=== PATIENT | male | born 1985 | race Caucasian/White ===

== ENCOUNTER 2016-07-11 10:36 | Emergency (ER) | payer BC ==
[2016-07-11 10:58] VITALS: TEMP 99.1
[2016-07-11] MEDS ORDERED: KETOROLAC 30 MG/ML 1 ML VIAL IVP STA (11:17)
[2016-07-11] MEDS ORDERED: DEXAMETHASONE SOD PHOSPHATE 10 MG/ML 1 ML VIAL PO ONE (11:20)
--- NOTE | 2016-07-11 11:23 | ED ---
Headache HPI - General Chief Complaint: Headache Stated Complaint: headache Time Seen by Provider: 07/11/16 11:04 Mode of arrival: ambulatory Limitations: no limitations - History of Present Illness Initial Comments: Complaining about a headache for the last few days my calls it the worse headache of his life also complaining about the sinus pressures remained 1 yellow-green stuff from his nostrils he also had a mild fever and is also complaining about cough and spitting up some phlegm, he was seen in urgent care for his cough he was told he had a viral syndrome. He has a mild fever today is 99.1 he denies any neck stiffness or headache is new as a no history of chronic headaches or migraines in the past denies any pressure headaches to headaches and he denies any trauma to the head. Head injury years ago but nothing and now recent days. Review of system is unremarkable - Related Data Home Medications Medication Instructions Recorded Confirmed Acetaminophen-Codeine 300-30mg 1 tab PO Q8H PRN 07/11/16 07/11/16 [Tylenol #3] Previous Rx's Medication Instructions Recorded Amoxicillin/Potassium Clav 1 tab PO Q12HR #20 tab 07/11/16 [Augmentin 875-125 Tablet] Allergies Allergy/AdvReac Type Severity Reaction Status Date / Time No Known Allergies Allergy Verified 07/11/16 12:46 Review of Systems ROS Statement: Those systems with pertinent positive or pertinent negative responses have been documented in the HPI. ROS Other: All systems not noted in ROS Statement are negative. Past Medical History Past Medical History: No Reported History History of Any Multi-Drug Resistant Organisms: None Reported Additional Past Surgical History / Comment(s): compartment syndrome sx left forearm Past Psychological History: No Psychological Hx Reported Smoking Status: Former smoker Past Alcohol Use History: None Reported Past Drug Use History: None Reported General Exam - General Exam Comments Initial Comments: General: The patient is awake and alert, in no distress, and does not appear acutely ill. Skin: Skin is warm and dry and no rashes or lesions are noted. Eye: Pupils are equal, round and reactive to light, extra-ocular movements are intact; there is normal conjunctiva bilaterally. Ears, nose, mouth and throat: Sinus consistent with sinusitis Neck: The neck is supple, there is no tenderness , he is able to move his neck or restriction, no signs of any meningitis at this time Cardiovascular: There is a regular rate and rhythm. No murmur, rub or gallop is appreciated. Respiratory: To auscultation bilateral, no wheezing no rhonchi no distress respiratory conte noticed Gastrointestinal: Soft, non-distended, non-tender abdomen without masses or organomegaly noted. There is no rebound or guarding present. Bowel sounds are unremarkable. Back: There is no tenderness to palpation in the midline. There is no obvious deformity. Musculoskeletal: Normal ROM, no tenderness, There is no pedal edema. There is no calf tenderness or swelling. No cords were appreciated. Neurological: CN II-XII intact, Cranial nerves III through XII are intact. There are no obvious motor or sensory deficits. Coordination appears grossly intact. Speech is normal. Psychiatric: Cooperative, appropriate mood & affect, normal judgment. Limitations: no limitations Course Vital Signs 07/11/16 10:55 Temperature 99.1 F Pulse Rate 83 Respiratory 18 Rate Blood Pressure 125/80 O2 Sat by Pulse 99 Oximetry His labs were discussed with the patient especially the C-reactive protein was elevated I advised the patient about the lumbar puncture that he wants to hold off the the lumbar puncture now him a he does want the instructions about lumbar puncture and meningitis and will come back if his symptoms get worse. He stated he had a scare about meningitis when he went to [place] for years ago is still wants to hold off the LP Medical Decision Making - Lab Data Result diagrams: 07/11/16 11:30 07/11/16 11:30 Lab Results 07/11/16 07/11/16 Range/Units 11:30 11:30 WBC 7.2 (3.8-10.6) k/uL RBC 5.21 (4.30-5.90) m/uL Hgb 15.4 (13.0-17.5) gm/dL Hct 42.2 (39.0-53.0) % MCV 80.9 (80.0-100.0) fL MCH 29.6 (25.0-35.0) pg MCHC 36.6 (31.0-37.0) g/dL RDW 12.2 (11.5-15.5) % Plt Count 221 (150-450) k/uL Neutrophils % 60 % Lymphocytes % 22 % Monocytes % 13 % Eosinophils % 1 % Basophils % 1 % Neutrophils # 4.3 (1.3-7.7) k/uL Lymphocytes # 1.6 (1.0-4.8) k/uL Monocytes # 1.0 (0-1.0) k/uL Eosinophils # 0.1 (0-0.7) k/uL Basophils # 0.0 (0-0.2) k/uL Hyperchromasia Slight Sodium 140 (137-145) mmol/L Potassium 3.9 (3.5-5.1) mmol/L Chloride 100 (98-107) mmol/L Carbon Dioxide 30 (22-30) mmol/L Anion Gap 10 mmol/L BUN 10 (9-20) mg/dL Creatinine 0.90 (0.66-1.25) mg/dL Est GFR (MDRD) Af Amer >60 (>60 ml/min/1.73 sqM) Est GFR (MDRD) Non-Af >60 (>60 ml/min/1.73 sqM) Glucose 84 (74-99) mg/dL Calcium 9.1 (8.4-10.2) mg/dL Total Bilirubin 1.2 (0.2-1.3) mg/dL AST 22 (17-59) U/L ALT 26 (21-72) U/L Alkaline Phosphatase 38 (38-126) U/L C-Reactive Protein 42.2 H (<10.0) mg/L Total Protein 7.1 (6.3-8.2) g/dL Albumin 4.5 (3.5-5.0) g/dL Disposition Clinical Impression: Headache, Sinusitis Disposition: HOME SELF-CARE Condition: Good Instructions: Bacterial Meningitis (ED) Prescriptions: Amoxicillin/Potassium Clav [Augmentin 875-125 Tablet] 1 tab PO Q12HR #20 tab Referrals: Nonstaff,Physician [REFERRING] - 1-2 days
[2016-07-11 11:45] LABS: Basophils % (A) 1 %; CH 30.4; CHCM 37.7; Eosinophils # (A) 0.1 k/uL (0-0.7); Eosinophils % (A) 1 %; HCT 42.2 % (39.0-53.0); HDW 2.84; HGB 15.4 gm/dL (13.0-17.5); Hyperchromasia Slight; Luc # (Auto) 0.26; Luc % (Auto) 4; Lymphocytes # (A) 1.6 k/uL (1.0-4.8); Lymphocytes % (A) 22 %; MCH 29.6 pg (25.0-35.0); MCHC 36.6 g/dL (31.0-37.0); MCV 80.9 fL (80.0-100.0); Monocytes % (A) 13 %; Neutrophils # (A) 4.3 k/uL (1.3-7.7); Neutrophils % (A) 60 %; RBC 5.21 m/uL (4.30-5.90); RDW 12.2 % (11.5-15.5); WBC 7.2 k/uL (3.8-10.6); WBC (Perox) 6.61
--- NOTE | 2016-07-11 11:55 | CT ---
EXAMINATION TYPE: CT brain wo con DATE OF EXAM: 07/11/2016 11:49 AM COMPARISON: NONE HISTORY: 30-year-old male with severe LAW TECHNIQUE: Examination was done in axial plane without intravenous contrast. Coronal and sagittal r econstructions performed. CT DLP: 1097.2 mGycm Automated exposure control for dose reduction was used. FINDINGS: There is no evidence of acute intracranial hemorrhage, acute ischemic changes, mass, mass-effect, or extra-axial fluid collection. There is no effacement of cerebral sulci or basal subarachnoid cister ns. There is no hydrocephalus. There is no midline shift. Manriquez-white matter distinction is preserv ed. Moderate mucosal thickening within the visualized right maxillary sinus. Mild within the ethmoid air cells, right sphenoid sinus, right frontal sinus, and left maxillary sinus. Mastoid air cells well pn eumatized. Orbits and globes are intact. IMPRESSION: No acute intracranial abnormality seen. [id number] chronic paranasal sinus disease.
[2016-07-11 11:59] LABS: ALT 26 U/L (21-72); AST 22 U/L (17-59); Alkaline Phosphatase 38 U/L (38-126); Anion Gap 10 mmol/L; Blood Urea Nitrogen 10 mg/dL (9-20); C Reactive Protein 42.2 mg/L (<10.0); Calcium 9.1 mg/dL (8.4-10.2); Carbon Dioxide 30 mmol/L (22-30); Chloride 100 mmol/L (98-107); Glucose 84 mg/dL (74-99); Non-African American GFR(MDRD) >60 (>60 ml/min/1.73 sqM); Potassium 3.9 mmol/L (3.5-5.1); Sodium 140 mmol/L (137-145); Total Bilirubin 1.2 mg/dL (0.2-1.3); Total Protein 7.1 g/dL (6.3-8.2)
--- NOTE | 2016-07-11 12:12 | XR ---
EXAMINATION TYPE: 4 views sinuses 2 views chest DATE OF EXAM: 07/11/2016 11:59 AM COMPARISON: None HISTORY: 30-year-old male headache, cough, fever, pain FINDINGS: Sinuses: There is asymmetric density involving the right maxillary sinus. Asymmetric density involving the rig ht ethmoid air cells as well. Minimal rightward bowing of the nasal septum. The left frontal sinus is hypoplastic. Sphenoid sinus appears clear. CHEST: Cardiomediastinal silhouette, aorta, and pulmonary vasculature are within normal limits. Lungs and pl eural spaces are clear. IMPRESSION: 1. Sinuses: Findings suggest right maxillary and right ethmoid sinus disease. 2. Chest: No acute cardiopulmonary process.
[2016-07-11] MEDS ORDERED: cefTRIAXone 2,000 MG in SODIUM CHLORIDE 0.9% 100 ML IVPB STA (13:26)
[2016-07-11] MEDS ORDERED: DEXAMETHASONE SOD PHOSPHATE 10 MG/ML 1 ML VIAL ONE (14:14)
[2016-07-11 14:51] VITALS: BP 110/70; PULSE 63; RESP 16
== END 2016-07-11 14:51 | disposition home or self-care (01) ==
LOC: EC 10:36
DX: J32.9 Chronic sinusitis, unspecified (principal); Z87.891 Personal history of nicotine dependence
CPT/HCPCS: 99284; 96365; 96375; 36415; 80053; 85025; 86140; 70220; 71020; 70450; J0696; J1885